=== PATIENT | male | born 1990 | race Two or more races ===

== ENCOUNTER 2020-04-03 18:57 | Emergency (ER) | payer MEDICAID ==
[~2020-04-03] VITALS: Ht 188 cm; Wt 118.0 kg
[2020-04-03 19:02] VITALS: BP 120/76
== END 2020-04-03 21:23 | disposition left against medical advice (07) ==
LOC: ER 18:57
DX: Z53.21 Procedure and treatment not carried out due to patient leaving prior to being seen by health care provider (principal)
CPT/HCPCS: 93005

== ENCOUNTER 2020-04-03 22:31 | Emergency (ER) | payer MEDICAID ==
[~2020-04-03] VITALS: Ht 188 cm; Wt 118.0 kg
[2020-04-03 22:34] VITALS: BP 135/77
[2020-04-04 00:19] LABS: CLARITY URINE CLEAR (CLEAR); COLOR URINE YELLOW (YELLOW); KETONES URINE NEGATIVE (NEGATIVE); LEUKOCYTE ESTERASE URINE NEGATIVE (NEGATIVE); NITRITE URINE NEGATIVE (NEGATIVE); OCCULT BLOOD URINE NEGATIVE (NEGATIVE); PH URINE 6.5 (4.5-8.0); PROTEIN URINE NEGATIVE (NEGATIVE); SPECIFIC GRAVITY URINE 1.021 (1.005-1.030)
== END 2020-04-04 00:55 | disposition home or self-care (01) ==
LOC: ER 22:31
DX: R10.9 Unspecified abdominal pain (principal)
CPT/HCPCS: 81003; 99283